=== PATIENT | female | born 1995 | race American Indian/Alaskan Native ===

== ENCOUNTER 2017-11-01 00:08 | Emergency (ER) | payer MEDICAID, OTHER ==
--- NOTE | 2017-11-01 00:22 | ED PDOC ---
HPI: General Adult Time Seen by Provider: 11/01/17 00:21 Chief Complaint (Provider): abscess History Per: Patient Additional Complaint(s): 21 year old female presents to ED for evaluation of abscess to tailbone region that patient noticed 3 days ago. Patient denies active drainage, bleeding, fever or chills. She took Aleve yesterday which did help the pain. Patient has been applying warm compresses which has not seemed to help. PMD: none Past Medical History Reviewed: Historical Data, Nursing Documentation, Vital Signs Vital Signs: Last Vital Signs Temp 98.0 F 11/01/17 00:23 Pulse 112 H 11/01/17 00:23 Resp 18 11/01/17 00:23 BP 155/82 H 11/01/17 00:23 Pulse Ox 98 11/01/17 00:44 - Medical History Other PMH: Hidradenitis suppurativa - Surgical History Surgical History: No Surg Hx - Family History Family History: States: No Known Family Hx - Living Arrangements Living Arrangements: With Family - Social History Current smoker - smoking cessation education provided: No Alcohol: Social Drugs: Denies - Home Medications Home Medications: Ambulatory Orders Medication Instructions Recorded Amoxicillin/Clavulanate Pota 1 tab PO BID #20 tab 03/06/15 [Augmentin 875 mg-125 mg] Fluticasone Nasal [Flonase] 1 actuation NS BID #1 bottle 10/01/15 Promethazine DM [Phenergan DM Oral 5 ml PO Q6H PRN #100 dose 10/01/15 Syrup] Sulfamethoxazole/Trimethoprim 1 tab PO BID #20 tab 03/20/16 [Bactrim DS 800 mg-160 mg] Sulfamethoxazole/Trimethoprim 1 tab PO BID #19 tab 10/20/16 [Bactrim DS 800 mg-160 mg] oxyCODONE/Acetaminophen [Percocet 1 ea PO Q6 PRN #10 tab 10/20/16 5/325 mg Tab] Clindamycin [Cleocin] 1 tab PO QID #28 cap 11/01/17 Ibuprofen [Motrin Tab] 800 mg PO Q8 PRN #20 tab 11/01/17 traMADol [Ultram] 50 mg PO TID PRN #15 tab 11/01/17 - Allergies Allergies/Adverse Reactions: Allergies Allergy/AdvReac Type Severity Reaction Status Date / Time No Known Allergies Allergy Verified 10/20/16 20:02 Review of Systems ROS Statement: Except As Marked, All Systems Reviewed And Found Negative Constitutional: Negative for: Fever Skin: Positive for: Other (abscess to low back) Physical Exam - Reviewed Nursing Documentation Reviewed: Yes Vital Signs Reviewed: Yes - Physical Exam Appears: Positive for: Well, Non-toxic, No Acute Distress Skin: Negative for: Rash Eye Exam: Positive for: Normal appearance Cardiovascular/Chest: Positive for: Regular Rate, Rhythm Respiratory: Positive for: Normal Breath Sounds Back: Positive for: Other (2 cm indurated abscess noted to gluteal cleft, no central pointing, no active drainage or bleeding, moderately tender to palpation , no erythematous streaking) Neurologic/Psych: Positive for: Alert, Oriented - Laboratory Results Urine POC: Negative - ECG O2 Sat by Pulse Oximetry: 98 Pulse Ox Interpretation: Normal Medical Decision Making Medical Decision Makin-year-old female with pilonidal abscess Plan: No I&D indicated, area is too indurated with no central pointing or fluctuance test IM toradol PO tramadol Initial dose clindamycin 300 mg PO Patient given prescriptions for clindamycin, Motrin and tramadol. Advised warm compresses with Epsom salt as often as possible. Patient was instructed to follow up in 2-3 days with surgeon, referral given. Disposition - Clinical Impression Clinical Impression: Pilonidal abscess - Patient ED Disposition Is Patient to be Admitted: No Counseled Patient/Family Regarding: Diagnosis, Need For Followup, Rx Given - Disposition Referrals: Claude Brown MD [Staff Provider] - Disposition: Routine/Home Disposition Time: 00:43 Condition: STABLE Additional Instructions: Apply warm compresses with Epsom salts to affected area as often as possible. Take prescription meds as directed. Follow-up with surgeon in 2-3 days. Prescriptions: Clindamycin [Cleocin] 1 tab PO QID #28 cap Ibuprofen [Motrin Tab] 800 mg PO Q8 PRN #20 tab PRN Reason: Pain, Moderate (4-7) traMADol [Ultram] 50 mg PO TID PRN #15 tab PRN Reason: Pain, Moderate (4-7) Instructions: Abscess (ED) Forms: [facility] ED School/Work Excuse
[2017-11-01 00:26] VITALS: RESP 18; TEMP 98
[2017-11-01 03:26] VITALS: BP 139/82; PULSE 99; O2SAT 99
== END 2017-11-01 01:43 | disposition home or self-care (01) ==
LOC: H.ER 00:08
DX: L05.01 Pilonidal cyst with abscess (principal)
CPT/HCPCS: 81025; 96372; 99282; J1885

== ENCOUNTER 2018-08-25 09:26 | Emergency (ER) | payer OTHER ==
[2018-08-25 09:38] VITALS: O2SAT 100
[2018-08-25 09:39] VITALS: BMI 39.1
[2018-08-25 10:15] LABS: BASO # 0.1 K/uL (0.0-0.2); BASO % 0.9 % (0.0-2.0); EOS # 0.2 K/uL (0.0-0.7); EOS % 1.8 % (0.0-4.0); HEMOGLOBIN 12.6 g/dL (12.0-16.0); LYMPH # 1.9 K/uL (1.0-4.3); LYMPH % 18.7 % (20.0-40.0); MEAN CELL VOLUME 90.3 fl (81.0-99.0); MEAN CORPUSCULAR HEMOGLOBIN 29.2 pg (27.0-31.0); MEAN CORPUSCULAR HGB CONC 32.4 g/dL (33.0-37.0); MEAN PLATELET VOLUME 9.5 fl (7.2-11.7); MONO # 0.9 K/uL (0.0-0.8); MONO % 8.4 % (0.0-10.0); NEUT # 7.2 K/uL (1.8-7.0); NEUT % 70.2 % (50.0-75.0); NRBC % 0.1 % (0.0-0.0); RBC 4.32 Mil/uL (3.80-5.20); RED CELL DISTRIBUTION WIDTH 13.2 % (11.5-14.5); WHITE BLOOD COUNT 10.2 K/uL (4.8-10.8)
[2018-08-25 10:23] LABS: SQUAMOUS EPITHIAL 17 /hpf (0-5); URINE BACTERIA RARE (<OCC); URINE BILIRUBIN NEGATIVE (NEGATIVE); URINE BLOOD NEGATIVE (NEGATIVE); URINE CLARITY CLOUDY (Clear); URINE COLOR YELLOW (YELLOW); URINE GLUCOSE (UA) NEG (Normal); URINE LEUKOCYTE ESTERASE NEG Leu/uL (Negative); URINE PROTEIN NEGATIVE (NEGATIVE); URINE UROBILINOGEN 0.2-1.0 mg/dL (0.2-1.0)
[2018-08-25 10:27] LABS: ALB/GLOB RATIO 1.1 (1.0-2.1); ALT/SGPT 32 U/L (9-52); AST/SGOT 34 U/L (14-36); BLOOD UREA NITROGEN 13 mg/dl (7-17); CALCIUM 8.9 mg/dL (8.4-10.2); GFR NON-AFRICAN AMERICAN > 60
--- NOTE | 2018-08-25 13:04 | US ---
Date of service: 08/25/2018 PROCEDURE: OB Pelvic Ultrasound HISTORY: preg with pelvic pain COMPARISON: None available. FINDINGS: UTERUS: Small intrauterine cystic structure, 5 mm mean diameter. Out of range for age determination. No definite pole identified. No detectable cardiac activity. Two areas of what are likely subchorionic hemorrhage are identified, 3 x 6 x 7 mm and 4 x 6 x 7 mm. Uterus measures 8.5 x 6.1 x 4.6 cm. Normal in size and appearance. CERVIX: Measures 5.0 cm. Long and closed. No cervical abnormality seen. RIGHT OVARY: Measures 3.3 x 4.3 x 3.1 cm. Corpus luteum identified, 2.1 x 2.0 x 2.2 cm. Normal flow. LEFT OVARY: Measures 3.4 x 3.6 x 1.5 cm. No solid mass. Normal flow. FREE FLUID: Small OTHER FINDINGS: None. IMPRESSION: Questionable small intrauterine gestational sac out of range for age determination. Questionable pole. Out of range for age determination. Possible small foci of subchorionic hemorrhage. Follow-up with transvaginal pelvic ultrasound and serial beta HCG advised. Right ovarian corpus luteum. Small amount of free fluid in cul-de-sac incidentally noted.
--- NOTE | 2018-08-25 13:21 | ED PDOC ---
HPI: General Adult Time Seen by Provider: 08/25/18 09:47 Chief Complaint (Nursing): Headache Chief Complaint (Provider): Headache History Per: Patient History/Exam Limitations: no limitations Onset/Duration Of Symptoms: Days (several) Current Symptoms Are (Timing): Still Present Additional Complaint(s): 22 year old A2 female presents to the ED with pelvic cramping and mild, diffuse intermittent headache for several days. Patient states at she took a home test which was positive. LNMP was the end of June. Has not had any other care to date. Denies focal weakness, numbness, incoordination, vaginal bleeding, dizziness, syncope, fever and neck pain. PMD: none provided Past Medical History Reviewed: Historical Data, Nursing Documentation, Vital Signs Vital Signs: Last Vital Signs Temp 98.4 F 08/25/18 09:38 Pulse 71 08/25/18 09:38 Resp 16 08/25/18 09:38 BP 129/73 08/25/18 09:38 Pulse Ox 100 08/25/18 09:38 - Medical History PMH: No Chronic Diseases Denies: Chronic Kidney Disease - Surgical History Surgical History: No Surg Hx - Family History Family History: States: Unknown Family Hx - Home Medications Home Medications: Ambulatory Orders Medication Instructions Recorded Fluticasone Nasal [Flonase] 1 actuation NS BID #1 bottle 10/01/15 Promethazine DM [Phenergan DM Oral 5 ml PO Q6H PRN #100 dose 10/01/15 Syrup] Ibuprofen [Motrin Tab] 800 mg PO Q8 PRN #20 tab 11/01/17 traMADol [Ultram] 50 mg PO TID PRN #15 tab 11/01/17 Amoxicillin/Clavulanate [Augmentin 1 tab PO Q12 10 Days tab 11/07/17 875 MG-125 MG Tab] Docusate [Colace] 100 mg PO BID 14 Days cap 11/07/17 Vit 108/Iron/Folic AC 1 each PO DAILY #20 tablet 08/25/18 [ One Tablet] - Allergies Allergies/Adverse Reactions: Allergies Allergy/AdvReac Type Severity Reaction Status Date / Time No Known Allergies Allergy Verified 11/04/17 17:27 Review of Systems ROS Statement: Except As Marked, All Systems Reviewed And Found Negative Genitourinary Female: Positive for: Pelvic Pain (cramping) Neurological: Positive for: Headache Physical Exam - Reviewed Nursing Documentation Reviewed: Yes Vital Signs Reviewed: Yes - Physical Exam Appears: Positive for: Non-toxic, No Acute Distress Head Exam: Positive for: ATRAUMATIC, NORMAL INSPECTION, NORMOCEPHALIC Skin: Positive for: Normal Color, Warm, Dry Eye Exam: Positive for: EOMI, Normal appearance, PERRL Neck: Positive for: Normal, Painless ROM, Supple Cardiovascular/Chest: Positive for: Regular Rate, Rhythm. Negative for: Murmur Respiratory: Positive for: Normal Breath Sounds. Negative for: Respiratory Distress Gastrointestinal/Abdominal: Positive for: Normal Exam, Soft. Negative for: Tenderness, Guarding Back: Positive for: Normal Inspection Extremity: Positive for: Normal ROM (upper and lower extremities). Negative for: Deformity, Swelling Neurologic/Psych: Positive for: Alert, Oriented. Negative for: Motor/Sensory Deficits - Laboratory Results Result Diagrams: 08/25/18 10:05 08/25/18 10:05 - ECG O2 Sat by Pulse Oximetry: 100 (RA) Pulse Ox Interpretation: Normal Medical Decision Making Medical Decision Makin:52 Initial Plan: --Blood type and screen --CBC --CMP --Urine preg --Urine dip --UA --Beta Quant --Ob Transvag US Blood work showed normal hemoglobin levels and a beta quant of 1960. UA was unremarkable. Rh+ 13:00 Transvaginal US FINDINGS: UTERUS: Small intrauterine cystic structure, 5 mm mean diameter. Out of range for age determination. No definite pole identified. No detectable cardiac activity. Two areas of what are likely subchorionic hemorrhage are identified, 3 x 6 x 7 mm and 4 x 6 x 7 mm. Uterus measures 8.5 x 6.1 x 4.6 cm. Normal in size and appearance. CERVIX: Measures 5.0 cm. Long and closed. No cervical abnormality seen. RIGHT OVARY: Measures 3.3 x 4.3 x 3.1 cm. Corpus luteum identified, 2.1 x 2.0 x 2.2 cm. Normal flow. LEFT OVARY: Measures 3.4 x 3.6 x 1.5 cm. No solid mass. Normal flow. FREE FLUID: Small OTHER FINDINGS: None. IMPRESSION: Questionable small intrauterine gestational sac out of range for age determination. Questionable pole. Out of range for age determination. Possible small foci of subchorionic hemorrhage. Follow-up with transvaginal pelvic ultrasound and serial beta HCG advised. Right ovarian michelle us luteum. Small amount of free fluid in cul-de-sac incidentally noted. 13:20 --Discussed results and need for follow up with patient. Patient is stable, headache resolved and will be discharged. Return precautions provided and vit Rx provided Scribe Attestation: Documented by Lyric Abbasi acting as a scribe for Kamron Garcia III, DO Provider Scribe Attestation: All medical record entries made by the Scribe were at my direction and personally dictated by me. I have reviewed the chart and agree that the record accurately reflects my personal performance of the history, physical exam, medical decision making, and the department course for this patient. I have also personally directed, reviewed, and agree with the discharge instructions and disposition. Disposition - Clinical Impression Clinical Impression: Threatened , Headache - Patient ED Disposition Is Patient to be Admitted: No Counseled Patient/Family Regarding: Studies Performed, Diagnosis, Need For Followup, Rx Given - Disposition Referrals: [facility] [Outside] Disposition: Routine/Home Disposition Time: 13:30 Condition: STABLE Additional Instructions: Use tylenol for headache or pain. See OBGYN in 5-7 days for repeat evaluation. Return to ER earlier for any worse pain, bleeding, weakness, or any concern. Prescriptions: Vit 108/Iron/Folic AC [ One Tablet] 1 each PO DAILY #20 tablet Instructions: Threatened Miscarriage (DC), Headache, Adult Forms: [facility] ([place])
[2018-08-25 14:55] VITALS: BP 124/65; PULSE 84; RESP 18; TEMP 98.6
== END 2018-08-25 14:50 | disposition home or self-care (01) ==
LOC: H.ER 09:26
DX: O20.0 Threatened abortion (principal); R51 Headache